=== PATIENT | female | born 1960 | race Caucasian/White ===

== ENCOUNTER 2018-05-14 19:15 | Emergency (ER) | payer OTHER ==
--- NOTE | 2018-05-14 19:53 | PDOC ---
Rapid Medical Evaluation Time Seen by Provider: 05/14/18 19:53 Medical Evaluation: Allergies Allergy/AdvReac Type Severity Reaction Status Date / Time lactose Allergy Unknown Verified 05/29/15 17:44 No Known Drug Allergies Allergy Verified 05/29/15 17:44 lactose-intolerance AdvReac Uncoded 05/29/15 17:44 05/14/18 19:53 I performed a brief in-person evaluation of this patient. Chief complaint is: Vomiting x 3-4 months, abdominal bloating, history of colonic perforation during cholecystectomy 2014, sent by Dr. Foley Pertinent physical exam findings include: Abdominal distention, no focal tenderness I have ordered the following: Labs, CTAP Patient will proceed to the ED for further evaluation. Discharge Disposition - Diagnosis Vomiting, Abdominal pain - Referrals - Patient Instructions - Post Discharge Activity
[2018-05-14] MEDS ORDERED: ONDANSETRON 4 MG/2 ML VIAL IVPB ONE (19:58)
[2018-05-14 19:59] VITALS: BP 149/78; PULSE 102; TEMP 98.1; BMI 38.9
--- NOTE | 2018-05-15 00:18 | PDOC ---
Attending Attestation - HPI HPI: This patient is a 57 year old female with PMHx of Afib, borderline DM, stomach cancer, Past surgical Hx of cholecystectomy w/ complications during surgery --> colon perforation (03/23/15), Stomach resection (2001), who was referred to the ER by her PCP for nausea, and vomiting vomiting over the past 3 months. Patient states that she has been under a lot of stress recently, her mother last year, her father is a a NH and her boss recently had an aneurysm and work has generally been hectic. She called her PCP who referred her to the ER for further evaluation. She states that she lost 25-30 pounds recently. PCP: Twyla Foley M.D. Talent Associate: Dr. Crystal (sp?) ([facility]) GI: Dr. Lopez's group - Physicial Exam PE: GENERAL: Awake, alert, and fully oriented, seemingly stressed. HEAD: No signs of trauma EYES: PERRLA, EOMI, sclera anicteric, conjunctiva clear ENT: Auricles normal inspection, hearing grossly normal, nares patent, oropharynx clear without exudates. Moist mucosa NECK: Normal ROM, supple, no lymphadenopathy, JVD, or masses LUNGS: Breath sounds equal, clear to auscultation bilaterally. No wheezes, and no crackles HEART: Irregular rate and rhythm, normal S1 and S2, no murmurs, rubs or gallops ABDOMEN: Soft, protuberant, nontender, distended, normoactive bowel sounds. No guarding, no rebound. No masses EXTREMITIES: Normal range of motion, no edema. No clubbing or cyanosis. No cords, erythema, or tenderness NEUROLOGICAL: Cranial nerves II through XII grossly intact. Normal speech, normal gait SKIN: Warm, Dry, normal turgor, no rashes or lesions noted. d <Machelle Phillips - Last Filed: 05/15/18 01:42> - Resident Resident Name: Manuel Dunham - ED Attending Attestation I have performed the following: I have examined & evaluated the patient, The case was reviewed & discussed with the resident, I agree w/resident's findings & plan, Exceptions are as noted - Critical Care Time Total Critical Care Time: 35 Critical Care Statement: The care of this patient involved high complexity decision making to prevent further life threatening deterioration of the patient 's condition and/or to evaluate & treat vital organ system(s) failure or risk of failure. - Medical Decision Making 05/15/18 00:18 I, Dr. Claire Kellogg, DO, attest that this document has been prepared under my direction and personally reviewed by me in its entirety. I further attest, that it accurately reflects all work, treatment, procedures and medical decision -making performed by me. 05/15/18 01:52 a/p: 57yo female with hx of choley and colonic perf presents for 6m of n/v and abd distention -underwent endo/colo with GI in February -called PMD today who recommended coming to the ED for further eval -having normal bm -abd is soft, no ttp, however, mildly distended -pt states very stressed recently -has not followed up with GI since the procedures -will send labs, ct abd/pelvis -if labs and ct negative can follow up outpt - r/o obstruction/mass/hernia 05/15/18 02:07 potassium of 2.5 magnesium added on to the labs will give po oral potassium plus iv potassium pending ct will repeat chem prior to dc <Claire Kellogg - Last Filed: 05/15/18 02:08> Heart Score/ECG Review - ECG Intrepretation Comment:: 05/15/18 02:06 afib at 107, nl axis, lvh, no acute st/t wave findings <Claire Kellogg - Last Filed: 05/15/18 02:08>
--- NOTE | 2018-05-15 00:26 | PDOC ---
History of Present Illness - General Chief Complaint: Nausea/Vomiting Stated Complaint: NAUSEA/VOMITING Time Seen by Provider: 05/14/18 19:53 History Source: Patient Exam Limitations: No Limitations - History of Present Illness Initial Comments: 05/15/18 08:51 57 yo F with a hx of afib (on xarelto), HLD, borderline-DM, and gastric cancer s /p resection 2001 Past History - Past Medical History Allergies/Adverse Reactions: Allergies Allergy/AdvReac Type Severity Reaction Status Date / Time lactose Allergy Unknown Verified 05/15/18 06:25 No Known Drug Allergies Allergy Verified 05/15/18 06:25 lactose-intolerance AdvReac Uncoded 05/15/18 06:25 Home Medications: Ambulatory Orders Rivaroxaban [Xarelto -] 20 mg PO DAILY 02/26/14 Pantoprazole Sodium [Protonix] 40 mg PO DAILY 02/03/15 Albuterol Sulfate Inhaler - [Ventolin HFA Inhaler -] 1 - 2 inh PO PRN PRN Diltiazem HCl [Diltiazem 24Hr ER] 120 mg PO DAILY 05/12/15 Furosemide [Lasix -] 40 mg PO DAILY 05/12/15 Furosemide [Lasix -] 60 mg PO HS 05/12/15 Polyethylene Glycol 3350 [Miralax 119 gm Btl -] 17 gm PO DAILY bottle 05/31/15 oxyCODONE HCL [Roxicodone -] 5 mg PO BID #30 tablet 06/01/15 Asthma: Yes (FREQUENT BRONCHITIS) Cancer: Yes (stomach) Cardiac Disorders: Yes (atrial fibrillation) Diabetes: Yes (borderline - not on med.) GI Disorders: Yes (hiatal hernia) HTN: Yes - Surgical History Abdominal Surgery: Yes (stomach resection 2001) Cholecystectomy: Yes (03/23/15) - Immunization History Immunization Up to Date: Yes - Suicide/Smoking/Psychosocial Hx Smoking History: Never smoked Have you smoked in the past 12 months: No Information on smoking cessation initiated: No Hx Alcohol Use: No Drug/Substance Use Hx: No Substance Use Type: None Hx Substance Use Treatment: No *Physical Exam - Vital Signs Last Vital Signs Temp Pulse Resp BP Pulse Ox 98.1 F 102 H 18 149/78 97 05/14/18 19:56 05/14/18 19:56 05/14/18 19:56 05/14/18 19:56 05/14/18 19:56 Moderate Sedation - Procedure Monitoring Vital Signs: Procedure Monitoring Vital Signs Temperature 98.1 F 05/14/18 19:56 Pulse Rate 102 H 05/14/18 19:56 Respiratory Rate 18 05/14/18 19:56 Blood Pressure 149/78 05/14/18 19:56 O2 Sat by Pulse Oximetry (%) 97 05/14/18 19:56 ED Treatment Course - LABORATORY CBC & Chemistry Diagram: 05/15/18 00:28 05/15/18 06:34 *DC/Admit/Observation/Transfer Diagnosis at time of Disposition: Hypokalemia Vomiting Qualifiers: Vomiting type: unspecified Vomiting Intractability: unspecified Nausea presence : unspecified Qualified Code(s): R11.10 - Vomiting, unspecified Abdominal pain Qualifiers: Abdominal location: unspecified location Qualified Code(s): R10.9 - Unspecified abdominal pain - Discharge Dispostion Disposition: HOME Decision to Admit order: No - Referrals Referrals: Twyla Foley MD [Primary Care Provider] - - Patient Instructions Printed Discharge Instructions: DI for Hypokalemia, DI for Nausea -- Adult, DI for Vomiting -- Adult Additional Instructions: your potassium was low. please eat potassium rich foods everyday and have your potassium checked by your doctor tomorrow for level check. please call Dr. Foley for this check. please return to the emergency department if you have worsening pain or new concerning symptoms. thank you. - Post Discharge Activity
[2018-05-15] MEDS: KCL 10 MEQ IVPB 10 MEQ/100 ML INFUS.BAG IVPB SCH ×2 (00:30→03:00)
[2018-05-15 00:37] LABS: BASO % 0.4 % (0-2.0); HEMATOCRIT 38.6 % (32.4-45.2); HEMOGLOBIN 13.3 GM/dL (10.7-15.3); LYMPH % 16.7 % (8-40); MCH 32.2 pg (25.7-33.7); MCHC 34.3 g/dl (32.0-36.0); MONO % 8.6 % (3.8-10.2); NEUT % 73.3 % (42.8-82.8); PLATELET COUNT 302 K/MM3 (134-434); RBC 4.11 M/mm3 (3.60-5.2); RDW 13.1 % (11.6-15.6); WHITE BLOOD COUNT 14.2 K/mm3 (4.0-10.0)
[2018-05-15] MEDS ORDERED: ONDANSETRON 4 MG/2 ML VIAL ONE (00:39)
[2018-05-15 01:08] LABS: URINE APPEARANCE SLCLOUDY; URINE BILIRUBIN NEGATIVE (<2.0 mg/dL); URINE COLOR LTYELLOW; URINE GLUCOSE (UA) NEGATIVE (NEGATIVE); URINE KETONE NEGATIVE (NEGATIVE); URINE LEUK ESTERASE NEGATIVE (NEGATIVE); URINE NITRITE NEGATIVE (NEGATIVE); URINE PROTEIN NEGATIVE (NEGATIVE); URINE UROBILINOGEN NEGATIVE mg/dL (0.2-1.0)
[2018-05-15 01:56] LABS: ALBUMIN 4.1 g/dl (3.4-5.0); ALK PHOS 155 U/L (45-117); ANION GAP 13 MMOL/L (8-16); BILIRUBIN,TOTAL 0.5 mg/dL (0.2-1); BLOOD UREA NITROGEN 39 mg/dL (7-18); CHLORIDE 91 mmol/L (98-107); CO2 33 mmol/L (21-32); CREATININE 1.1 mg/dL (0.55-1.3); GLUCOSE,RANDOM 183 mg/dL (74-106); LIPASE 267 U/L (73-393); SGOT/AST 31 U/L (15-37); SGPT/ALT 32 U/L (13-61); SODIUM 137 mmol/L (136-145)
[2018-05-15 01:57] LABS: POTASSIUM 2.5 mmol/L (3.5-5.1)
[2018-05-15] MEDS ORDERED: POTASSIUM CHLORIDE TABS 20 MEQ TABLET.ER (FP) PO ONE ×5 (02:01→07:16)
[2018-05-15] MEDS ORDERED: SODIUM CHLORIDE 1,000 ML IV STA (02:02)
[2018-05-15] MEDS ORDERED: KCL 10 MEQ IVPB 20 MEQ/200 ML INFUS.BAG IVPB ONE (03:29)
--- NOTE | 2018-05-15 12:22 | EKG ---
Test Reason : Blood Pressure : / mmHG Vent. Rate : 107 BPM Atrial Rate : 110 BPM P-R Int : 000 ms QRS Dur : 088 ms QT Int : 362 ms P-R-T Axes : 000 -17 091 degrees QTc Int : 483 ms ATRIAL FIBRILLATION WITH RAPID VENTRICULAR RESPONSE MINIMAL VOLTAGE CRITERIA FOR LVH, MAY BE NORMAL VARIANT NONSPECIFIC T WAVE ABNORMALITY ABNORMAL ECG WHEN COMPARED WITH ECG OF 25-MAR-2015 08:04, NO SIGNIFICANT CHANGE WAS FOUND Confirmed by GRECIA MORRISON, JUANITA ([id number]) on 05/15/2018 12:21:48 PM Referred By: Confirmed By:JUANITA PAIGE MD
== END 2018-05-15 07:37 | disposition home or self-care (01) ==
LOC: JER 19:15
PROC: 3E033GC Introduction of Other Therapeutic Substance into Peripheral Vein, Percutaneous Approach (ICD-10-PCS; principal; 2018-05-14)
PROC: 3E0337Z Introduction of Electrolytic and Water Balance Substance into Peripheral Vein, Percutaneous Approach (ICD-10-PCS; 2018-05-14)
DX: E87.6 Hypokalemia (principal); R10.9 Unspecified abdominal pain; R11.10 Vomiting, unspecified; I48.91 Unspecified atrial fibrillation; R73.03 Prediabetes; E78.5 Hyperlipidemia, unspecified; Z85.00 Personal history of malignant neoplasm of unspecified digestive organ
CPT/HCPCS: 36415; 74176-TC; 80053; 81003; 82550; 82553; 83690; 83735; 84132; 84484; 85025; 93005; 93010; 99282-25; J7030